=== PATIENT | female | born 1975 | race Caucasian/White ===

== ENCOUNTER 2016-10-16 19:11 | Emergency (ER) ==
--- NOTE | 2016-10-16 19:16 | ED.PDOC ---
General ED Provider: Dr. CLOTILDE VILLAFUERTE-ER Chief Complaint: Tooth Problem Stated Complaint: my tooth is swollen and painful Time Seen by Physician: 19:14 Mode of Arrival: Walk-In Information Source: Patient, Family Nursing and Triage Documentation Reviewed and Agree: Yes EENT Complaint Exam - Dental/Oral Complaint/Exam Mechanism of Injury: No known trauma Onset/Duration: 2 days Symptoms Are: Still present Timing: Constant Initial Severity: Mild Current Severity: Mild Location: right lower premolar Character: Reports: Dull, Aching, Throbbing Aggravating: Reports: Heat, Cold, Chewing Alleviating: Reports: None Associated Signs and Symptoms: Reports: Swelling. Denies: Discharge, Fever, Foul odor, Foul taste in mouth Related History: Reports: Previous tooth problem Tooth Findings: Present: Percussion tenderness, Gross decay, Gross caries, Abcess Cervical Lymphadenopathy Present: No Facial Swelling Present: Yes Bleeding Present: No Septal Hematoma: No Foreign Body Present: No Dysphagia Present: No Drooling Present: No Asymmetrical Tonsillar Swelling Present: No Uvula Midline: Yes Trista-tonsillar Fluctuence: No Trismus Present: No Palatal Petechiae Present: No Scarlatinaform Rash Present: No Differential Diagnoses: Dental Abcess Review of Systems - Review Of Systems Constitutional: Reports: No symptoms Eyes: Reports: No symptoms Ears, Nose, Mouth, Throat: Reports: Mouth pain, Mouth swelling Respiratory: Reports: No symptoms Cardiac: Reports: No symptoms GI: Reports: No symptoms : Reports: No symptoms Musculoskeletal: Reports: No symptoms Skin: Reports: No symptoms Neurological: Reports: No symptoms Endocrine: Reports: No symptoms Hematologic/Lymphatic: Reports: No symptoms All Other Systems: Reviewed and Negative Past Medical History - Past Medical History Endocrine: Reports: Unknown Cardiovascular: Reports: Unknown Respiratory: Reports: Unknown Hematological: Reports: Unknown Gastrointestinal: Reports: Unknown Genitourinary: Reports: Unknown Neuro/Psych: Reports: Unknown Musculoskeletal: Reports: Unknown Cancer: Reports: Unknown - Surgical History General Surgical History: Reports: Unknown - Family History Family History: Reports: Unknown Physical Exam - Physical Exam Appearance: Well-appearing, No pain distress, Well-nourished Pain Distress: Mild Eyes: TAMIKO, EOMI, Conjunctiva clear ENT: Ears normal, Nose normal, Oropharynx normal (noted right lower premolar tender with swollen gums) Neck: Supple Respiratory: Airway patent, Breath sounds clear, Breath sounds equal, Respirations nonlabored Cardiovascular: RRR, Pulses normal, No rub, No murmur GI/: Soft, Nontender, No masses, Bowel sounds normal, No Organomegaly Musculoskeletal: Normal strength, ROM intact, No edema, No calf tenderness Skin: Warm, Dry, Normal color Neurological: Sensation intact, Motor intact, Reflexes intact, Cranial nerves intact, Alert, Oriented Psychiatric: Affect appropriate, Mood appropriate Critical Care Note - Critical Care Note Total Time (mins): 0 Departure - Departure Time of Disposition: 19:16 Disposition: HOME SELF-CARE Discharge Problem: Dental abscess Instructions: Dental Abscess (ED) Condition: Good Pt referred to PMD for follow-up: Yes Additional Instructions: stop cipro--clindamycin 150mg tid x 7days--percocet 5mg 1-2 tabs q 6hrs prn pain #12--f/u wtih dentist jt Disposition Discussed With: Patient, Family
[2016-10-16 19:20] VITALS: BP 127/80; TEMP 98.3; BMI 30.2
== END 2016-10-16 19:27 | disposition home or self-care (01) ==
LOC: ED 19:11
DX: K04.7 Periapical abscess without sinus (principal); K02.7 Dental root caries
CPT/HCPCS: 99282

== ENCOUNTER 2016-11-14 07:00 | Emergency (ER) ==
[2016-11-14 07:07] VITALS: BP 123/78; TEMP 97.9; BMI 29.2
[2016-11-14] MEDS ORDERED: TORADOL IM STA (07:15)
[2016-11-14] MEDS ORDERED: CLEOCIN PO STA (07:15)
--- NOTE | 2016-11-14 07:18 | ED.PDOC ---
General ED Provider: Dr. EDUARD SANCHEZ Chief Complaint: Tooth Problem Stated Complaint: hurting in the right side of the jaw, swollen gums, broken teeth. Time Seen by Physician: 07:16 Mode of Arrival: Walk-In Information Source: Patient Nursing and Triage Documentation Reviewed and Agree: Yes EENT Complaint Exam - Dental/Oral Complaint/Exam Mechanism of Injury: Unknown Symptoms Are: Still present Timing: Constant Initial Severity: Moderate Current Severity: Moderate Character: Reports: Aching, Throbbing Aggravating: Reports: Cold, Chewing Alleviating: Reports: None Associated Signs and Symptoms: Reports: Swelling, Foul odor, Foul taste in mouth Related History: Reports: Similar episode Cardiac Risk Factors: Reports: None Dental/Oral Surgical History: Reports: None Tooth Findings: Present: Percussion tenderness, Gross decay Cervical Lymphadenopathy Present: Yes Facial Swelling Present: Yes Septal Hematoma: No Foreign Body Present: No Dysphagia Present: No Drooling Present: No Asymmetrical Tonsillar Swelling Present: No Teeth Picture: 1 - grossly decay, broken, swollen gums Differential Diagnoses: Dental Abcess, Dental Caries Review of Systems - Review Of Systems Constitutional: Reports: No symptoms Eyes: Reports: No symptoms Ears, Nose, Mouth, Throat: Reports: Mouth pain, Mouth swelling Respiratory: Reports: No symptoms Cardiac: Reports: No symptoms GI: Reports: No symptoms : Reports: No symptoms Musculoskeletal: Reports: No symptoms Skin: Reports: No symptoms Neurological: Reports: No symptoms Endocrine: Reports: No symptoms Hematologic/Lymphatic: Reports: No symptoms All Other Systems: Reviewed and Negative Past Medical History - Past Medical History Previously Healthy: No Endocrine: Reports: None Cardiovascular: Reports: None Respiratory: Reports: None Hematological: Reports: None Gastrointestinal: Reports: None Genitourinary: Reports: None Neuro/Psych: Reports: None Musculoskeletal: Reports: None Cancer: Reports: None Last Menstrual Period: 11/14/2016 - Surgical History General Surgical History: Reports: Unknown - Family History Family History: Reports: Unknown - Social History Smoking Status: Current every day smoker Smoking Cessation Counseling Time: > 3 min - 10 min Hx Substance Use: No Alcohol Screening: Occasionally - Immunizations Tetanus Shot up to Date: Yes Physical Exam - Physical Exam Appearance: Well-appearing, No pain distress, Well-nourished Eyes: TAMIKO, EOMI, Conjunctiva clear ENT: Ears normal, Nose normal, Oropharynx normal Respiratory: Airway patent, Breath sounds clear, Breath sounds equal, Respirations nonlabored Cardiovascular: RRR, Pulses normal, No rub, No murmur GI/: Soft, Nontender, No masses, Bowel sounds normal, No Organomegaly Musculoskeletal: Normal strength, ROM intact, No edema, No calf tenderness Skin: Warm, Dry, Normal color Neurological: Sensation intact, Motor intact, Reflexes intact, Cranial nerves intact, Alert, Oriented Psychiatric: Affect appropriate, Mood appropriate Critical Care Note - Critical Care Note Total Time (mins): 0 Course - Course Orders, Labs, Meds: Orders Category Date Time Status Clindamycin HCl [Cleocin] MEDS 11/14/16 07:15 Stat 300 mg PO ONCE STA Ketorolac Tromethamine [Toradol] MEDS 11/14/16 07:15 Stat 60 mg IM ONCE STA Vital Signs: Temp Pulse Resp BP Pulse Ox 11/14/16 07:01 97.9 F 88 20 123/78 97 Departure - Departure Time of Disposition: 07:22 Disposition: HOME SELF-CARE Discharge Problem: Dental abscess Instructions: Dental Abscess (ED) Condition: Stable Pt referred to PMD for follow-up: Yes (dentist) Additional Instructions: keep f/u with dentist take medications with food probiotics capsules, as antibiotics can give you diarrhea. Prescriptions: Clindamycin HCl 300 mg PO TID #15 capsule Oxycodone HCl/Acetaminophen [Percocet 5-325 mg Tablet] 1 tab PO TID PRN #12 tablet PRN Reason: PAIN Allergies/Adverse Reactions: Allergies No Known Drug Allergies Adverse Reaction (Verified 11/14/16 07:07) Home Medications: Ambulatory Orders Clindamycin HCl 300 mg PO TID #15 capsule 11/14/16 Oxycodone HCl/Acetaminophen [Percocet 5-325 mg Tablet] 1 tab PO TID PRN #12 tablet 11/14/16 Disposition Discussed With: Patient, Family
== END 2016-11-14 07:54 | disposition home or self-care (01) ==
LOC: ED 07:00
DX: K04.7 Periapical abscess without sinus (principal); K02.7 Dental root caries; S02.5XXA Fracture of tooth (traumatic), initial encounter for closed fracture; F17.210 Nicotine dependence, cigarettes, uncomplicated
CPT/HCPCS: 96372; 99282